=== PATIENT | male | born 1980 | race Caucasian/White ===

== ENCOUNTER 2021-05-15 19:09 | Emergency (ER) | payer BC ==
[~2021-05-15] VITALS: Ht 172.7 cm; Wt 83.9 kg
[2021-05-15 19:27] VITALS: BP_SYST 161
--- NOTE | 2021-05-15 19:31 | NUR ---
Patient triaged and placed in waiting room. VS checked and patient appears in no acute distress at this time. Awaiting available bed, and MD notified of need for MSE.
[2021-05-15] MEDS ORDERED: FLUORESCEIN SODIUM 1 MG OPHTHALMIC STRIP OP ONE (20:15)
[2021-05-15] MEDS ORDERED: TETRACAINE HCL/PF 0.5% OPHTHALMIC DROPS 4 ML OP ONE (20:15)
--- NOTE | 2021-05-15 20:15 | NUR ---
Patient ambulatory to bed 6 for evaluation and treatment.
[2021-05-15] MEDS ORDERED: ACETAMINOPHEN 500 MG TABLET PO ONE (20:45)
[2021-05-15] MEDS ORDERED: ACET-2634 PO (20:56)
[2021-05-15] MEDS ORDERED: CIPR5DRO RIGHT EYE (21:05)
[2021-05-15] MEDS ORDERED: ERYEYE RIGHT EYE (21:05)
[2021-05-15] MEDS ORDERED: CYCLOGYL RIGHT EYE (21:05)
[2021-05-15] MEDS ORDERED: DIPH-TET-PERTUS Vaccine 0.5 ML VIAL (ADACEL) I.M. ONE (21:15)
[2021-05-16 03:36] VITALS: BP_SYST 161
--- NOTE | 2021-05-16 03:36 | NUR ---
PT HAD EYE IRRITATION FOR SEVERAL DAYS
--- NOTE | 2021-05-16 03:37 | NUR ---
THIS PT WAS HERE BEFORE I STARTED MY SHIFT , THE ER JUST NEEDS A RN TO COMPLETE THE DOCUMENTATION TO CLOSE THE CHART
== END 2021-05-15 21:33 | disposition home or self-care (01) ==
LOC: SED 19:09
DX: S05.01XA Injury of conjunctiva and corneal abrasion without foreign body, right eye, initial encounter (principal); Z79.899 Other long term (current) drug therapy; X58.XXXA Exposure to other specified factors, initial encounter; Y93.89 Activity, other specified; Y92.89 Other specified places as the place of occurrence of the external cause; Y99.8 Other external cause status
CPT/HCPCS: 99283

== ENCOUNTER 2022-10-23 05:12 | Emergency (ER) | payer BC ==
[~2022-10-23] VITALS: Ht 175.3 cm; Wt 83.9 kg
[~2022-10-23 05:12] MED LIST: ACET-2634 PO; CIPR5DRO RIGHT EYE; CYCLOGYL RIGHT EYE; ERYEYE RIGHT EYE
[2022-10-23 05:25] VITALS: BP_SYST 141; PULSE 62; RESP 18; TEMP 97.4; O2SAT 98
[2022-10-23] MEDS ORDERED: FLUORESCEIN SODIUM 1 MG OPHTHALMIC STRIP OP ONE (06:30)
[2022-10-23 06:43] VITALS: BP_SYST 141; PULSE 62; RESP 16; TEMP 98.2; O2SAT 98
== END 2022-10-23 06:43 | disposition home or self-care (01) ==
LOC: SED 05:12
DX: H57.11 Ocular pain, right eye (principal); Z79.899 Other long term (current) drug therapy
CPT/HCPCS: 99283